=== PATIENT | male | born 1985 | race African-American/Black ===

== ENCOUNTER 2018-07-09 15:21 | Emergency (ER) | payer BC ==
[2018-07-09 15:46] VITALS: BP 157/84
--- NOTE | 2018-07-09 16:20 | UC ---
Back Pain HPI - HPI Summary HPI Summary: pt c/o sudden onset right side lower back pain. Pt states he sleeps on old futon mattress and wakes each morning with low back tightness and pain. Pt has taken, ibuprofen, excedrin and aspirin today with little to no improvement in pain. - History of Current Complaint Chief Complaint: UCBackPain Stated Complaint: LOWER BACK/RT HIP PAIN Time Seen by Provider: 07/09/18 16:06 Hx Obtained From: Patient Onset/Duration: Sudden Onset, Lasting Hours, Still Present Timing: Constant Severity Initially: Moderate Severity Currently: Moderate Pain Intensity: 5 Back Pain: Is Discrete @ - low back Character: Dull, Aching, Stiffness Aggravating Factor(s): Movement, Lifting, Bending, Walking Alleviating Factor(s): Position Associated Signs And Symptoms: Positive: Negative - Risk Factors AAA Risk Factors: Negative TAD Risk Factors: Negative Cauda Equina Risk Factors: Negative Epidural Abscess Risk Factors: Negative - Allergies/Home Medications Allergies/Adverse Reactions: Allergies Allergy/AdvReac Type Severity Reaction Status Date / Time No Known Allergies Allergy Verified 07/09/18 15:49 Home Medications: Home Medications Ibuprofen 600 mg PO Q8H 07/09/18 [History Confirmed 07/09/18] PMH/Surg Hx/FS Hx/Imm Hx Previously Healthy: Yes - Surgical History Surgical History: Yes Surgery Procedure, Year, and Place: RIGHT WRIST REPAIR - Family History Known Family History: Positive: Cardiac Disease - Social History Occupation: Employed Full-time Lives: With Family Alcohol Use: Daily Alcohol Amount: 6 DAILY Substance Use Type: Cocaine Substance Use Comment - Amount & Last Used: OCCASSIONALLY Smoking Status (MU): Heavy Every Day Tobacco Smoker Type: Cigarettes Amount Used/How Often: 1PACK PER WEEK Have You Smoked in the Last Year: Yes Household Exposure Type: Cigarettes Review of Systems Constitutional: Negative Skin: Negative Eyes: Negative ENT: Negative Respiratory: Negative Cardiovascular: Negative Gastrointestinal: Negative Genitourinary: Negative Motor: Decreased ROM - low back Neurovascular: Negative Musculoskeletal: Arthralgia, Decreased ROM - low back, Myalgia Neurological: Negative Psychological: Negative Is Patient Immunocompromised?: No All Other Systems Reviewed And Are Negative: Yes Physical Exam Triage Information Reviewed: Yes Appearance: Pain Distress, Obese Vital Signs: Initial Vital Signs Temp 98.7 F 07/09/18 15:40 Pulse 103 07/09/18 15:40 Resp 20 07/09/18 15:40 BP 157/84 07/09/18 15:40 Pulse Ox 99 07/09/18 15:40 Vital Signs Reviewed: Yes Eye Exam: Normal ENT: Positive: Hearing grossly normal Dental Exam: Normal Neck exam: Normal Respiratory: Positive: No respiratory distress Musculoskeletal: Positive: ROM Limited @ - low back, Other: - low back lordosis flattened- slightly Neurological Exam: Normal Psychological Exam: Normal Skin Exam: Normal Back Pain Course/Dx - Differential Dx/Diagnosis Differential Diagnosis/HQI/PQRI: Herniated Disc, Strain, Sprain Provider Diagnoses: low back strain. low back muscle spasm Discharge - Sign-Out/Discharge Documenting (check all that apply): Patient Departure - Discharge Plan Condition: Stable Disposition: HOME Prescriptions: Cyclobenzaprine TAB* [Flexeril 10 MG TAB*] 10 mg PO TID PRN #15 tab PRN Reason: Pain Patient Education Materials: Acute Low Back Pain (ED), Lower Back Exercises (ED ) Forms: *Work Release Referrals: [facility] [Outside] No Primary Care Phys,NOPCP [Primary Care Provider] - - Billing Disposition and Condition Condition: STABLE Disposition: Home Attestation Statement User Type: Provider - I was available for consult. This patient was seen by the PAWEL. The patient was not presented to, seen by, or examined by me. -Lela
== END 2018-07-09 16:34 | disposition home or self-care (01) ==
LOC: UCCORT 15:21
DX: S39.012A Strain of muscle, fascia and tendon of lower back, initial encounter (principal); X58.XXXA Exposure to other specified factors, initial encounter; Y92.9 Unspecified place or not applicable; M62.830 Muscle spasm of back; F17.210 Nicotine dependence, cigarettes, uncomplicated
CPT/HCPCS: 99202; G0463